=== PATIENT | male | born 1990 | race Two or more races ===

== ENCOUNTER 2019-02-12 05:03 | Emergency (ER) | payer SELFPAY ==
[~2019-02-12] VITALS: Ht 175.3 cm; Wt 71.7 kg
[2019-02-12 05:20] VITALS: BP 122/82
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
[2019-02-12] MEDS ORDERED: Acetaminophen 500mg (ES) tab ORAL ONE (05:45)
[2019-02-12 07:07] VITALS: BP 125/73
[2019-02-12 07:10] VITALS: BP 126/72
[2019-02-12] MEDS ORDERED: ROBAXIN-750750 MG PO (08:28)
[2019-02-12] MEDS ORDERED: IBUPROFEN600 MG ORAL (08:28)
[2019-02-12 08:31] VITALS: BP 122/75
--- NOTE | 2019-02-12 11:16 | Diagnostic Imaging Report ---
Indication: left hand pain. Comparison: None Findings: 3 views of the left hand were obtained. Normal alignment is demonstrated. No acute fractures, erosions, or periosteal reaction are seen. Soft tissues are unremarkable. Impression: No acute findings.
--- NOTE | 2019-02-12 11:31 | Diagnostic Imaging Report ---
Indication: Right knee Pain 3 views of the right knee were obtained. Findings: No acute fracture, malalignment, or joint effusion are identified. Impression: Negative for acute findings.
== END 2019-02-12 08:31 | disposition home or self-care (01) ==
LOC: EMR 05:36
DX: R10.30 Lower abdominal pain, unspecified (principal); F41.9 Anxiety disorder, unspecified; M25.561 Pain in right knee; M25.542 Pain in joints of left hand; V43.62XA Car passenger injured in collision with other type car in traffic accident, initial encounter; Y92.410 Unspecified street and highway as the place of occurrence of the external cause
CPT/HCPCS: 99283